=== PATIENT | female | born 1985 | race Two or more races ===

== ENCOUNTER → 2022-05-22 | Emergency (ER) | payer OTHER ==
[~2022-05-22] VITALS: Ht 172.7 cm; Wt 74.8 kg
[~2022-05-22] MED LIST: AMOX-CLAV 875-1 EACH PO; DICLOFENAC POTA50 MG PO; INTESTINEX680 M1 PO
== END | disposition left against medical advice (07) ==
LOC: ER 11:42
DX: J03.90 Acute tonsillitis, unspecified (principal)

== ENCOUNTER 2022-05-23 01:43 | Emergency (ER) | payer OTHER ==
[~2022-05-23] VITALS: Ht 172.7 cm; Wt 74.8 kg
[2022-05-23] MEDS ORDERED: DICLOFENAC POTA50 MG PO (03:24)
[2022-05-23] MEDS ORDERED: AMOX-CLAV 875-1 EACH PO (03:24)
[2022-05-23] MEDS ORDERED: INTESTINEX680 M1 PO (03:27)
== END 2022-05-23 03:30 | disposition home or self-care (01) ==
LOC: ER 01:43
DX: J02.9 Acute pharyngitis, unspecified (principal); J03.80 Acute tonsillitis due to other specified organisms